=== PATIENT | female | born 1960 | race African-American/Black ===

== ENCOUNTER 2020-02-08 23:51 | Inpatient (IN) | payer BC ==
[~2020-02-08] VITALS: Ht 165.1 cm; Wt 119.8 kg
[2020-02-09] MEDS ORDERED: ASPIRIN 81MG TABLET PO ONE (00:15)
[2020-02-09] MEDS ORDERED: DILTIAZEM HCL 5MG/ML 5ML VIAL IV ONE ×2 (00:15)
[2020-02-09] MEDS ORDERED: SODIUM CHLORIDE 0.9% 1,000 ML IV ONE (00:15)
[2020-02-09 00:46] LABS: BASOPHILS % 1.1 % (0.0-2.0); EOSINOPHILS % 2.1 % (0.0-5.0); HEMATOCRIT. 39.7 % (36.0-48.0); HEMOGLOBIN. 12.9 g/dL (12.0-16.0); MEAN CORPUSCULAR HEMOGLOBIN 25.9 pg (28.0-32.0); MEAN CORPUSCULAR VOLUME 79.7 fL (81.0-99.0); MEAN PLATELET VOLUME 8.1 fl (7.4-10.4); NEUTROPHILS % 63.8 % (40.0-76.0); PLATELET 268 x1000/uL (130-400); RED BLOOD CELL COUNT 4.98 mill/uL (4.2-5.4); RED CELL DISTRIBUTION WIDTH 15.2 % (11.6-14.6)
[2020-02-09 01:07] LABS: CHLORIDE 111 mEq/L (98-107)
[2020-02-09 01:09] LABS: INR 1.1; PARTIAL THROMBOPLASTIN TIME 37.2 sec (23.4-31.0); PROTHROMBIN TIME 11.9 sec (9.6-11.0)
[2020-02-09 01:13] LABS: ETHANOL BLOOD < 10 mg/dL
[2020-02-09 02:21] LABS: CLARITY URINE CLEAR (CLEAR); COLOR URINE YELLOW (YELLOW); KETONES URINE NEGATIVE (NEGATIVE); LEUKOCYTE ESTERASE URINE TRACE (NEGATIVE); NITRITE URINE NEGATIVE (NEGATIVE); OCCULT BLOOD URINE TRACE (NEGATIVE); PROTEIN URINE NEGATIVE (NEGATIVE); SPECIFIC GRAVITY URINE 1.014 (1.005-1.030); UROBILINOGEN URINE 0.2 E.U./dL (0.2-1.0)
[2020-02-09 02:48] LABS: *AMPHETAMINES SCREEN URINE NEGATIVE (NEGATIVE); *BARBITURATES SCREEN URINE NEGATIVE (NEGATIVE); *BENZODIAZEPINES SCREEN URINE NEGATIVE (NEGATIVE); *COCAINE SCREEN URINE NEGATIVE (NEGATIVE)
[2020-02-09 02:49] LABS: CANNABINOID URINE SCREEN NEGATIVE (NEGATIVE); METHADONE URINE SCREEN NEGATIVE (NEGATIVE); OPIATES URINE SCREEN NEGATIVE (NEGATIVE); PHENCYCLIDINE URINE SCREEN NEGATIVE (NEGATIVE)
[2020-02-09 05:54] VITALS: BP 138/83
[2020-02-09 08:00] VITALS: BP 113/64
[2020-02-09] MEDS ORDERED: ACETAMINOPHEN 325MG TABLET PO PRN (08:45)
[2020-02-09] MEDS ORDERED: POTASSIUM CHLORIDE 20MEQ TABLET SR PO SCH (09:00)
[2020-02-09 12:00] VITALS: BP 135/83
[2020-02-09] MEDS: DILTIAZEM HCL 30MG TABLET PO SCH ×2 (12:34→18:32)
[2020-02-09 16:00] VITALS: BP 157/90
[2020-02-09] MEDS ORDERED: POTASSIUM CHLORIDE 20MEQ TABLET SR PO NR (16:45)
[2020-02-09] MEDS ORDERED: MAGNESIUM 1 G PREMIX 100 ML IV SCH (18:00)
[2020-02-09 20:00] VITALS: BP 112/78
[2020-02-10] VITALS: BP 132/75
[2020-02-10] MEDS: DILTIAZEM HCL 30MG TABLET PO SCH ×3 (00:48→12:42)
[2020-02-10 04:00] VITALS: BP 143/69
[2020-02-10 06:49] LABS: BASOPHILS % 0.9 % (0.0-2.0); EOSINOPHILS % 3.9 % (0.0-5.0); HEMATOCRIT. 35.1 % (36.0-48.0); HEMOGLOBIN. 11.5 g/dL (12.0-16.0); LYMPHOCYTES % 29.3 % (20.0-50.0); MEAN CORPUSCULAR HEMOGLOBIN 26.1 pg (28.0-32.0); MEAN CORPUSCULAR VOLUME 79.5 fL (81.0-99.0); MEAN PLATELET VOLUME 8.3 fl (7.4-10.4); MONOCYTES % 9.1 % (2.0-8.0); NEUTROPHILS % 56.8 % (40.0-76.0); PLATELET 256 x1000/uL (130-400); RED BLOOD CELL COUNT 4.41 mill/uL (4.2-5.4); RED CELL DISTRIBUTION WIDTH 15.2 % (11.6-14.6)
[2020-02-10 08:00] VITALS: BP 138/85
[2020-02-10 08:56] LABS: CHLORIDE 111 mEq/L (98-107)
[2020-02-10 09:04] LABS: PHOSPHORUS 3.7 mg/dL (2.5-4.9)
[2020-02-10 12:00] VITALS: BP 146/83
[2020-02-10 12:59] VITALS: BP_SYST 133; BP_SYST 146; BP_DIAS 77; BP_DIAS 83
== END 2020-02-10 15:20 | disposition home or self-care (01) | DRG 281 ==
LOC: ER 23:51 → ENRESERV 02-09 04:18 → 5WST 02-09 05:07
PROVIDERS: ADMIT Internal Medicine; ATTEND Internal Medicine
DX: I48.92 Unspecified atrial flutter (principal); I21.A1 Myocardial infarction type 2; Z68.41 Body mass index [BMI] 40.0-44.9, adult; E66.01 Morbid (severe) obesity due to excess calories; E86.0 Dehydration; I48.0 Paroxysmal atrial fibrillation; K44.9 Diaphragmatic hernia without obstruction or gangrene; I10 Essential (primary) hypertension; I25.2 Old myocardial infarction; Z80.1 Family history of malignant neoplasm of trachea, bronchus and lung; Z80.41 Family history of malignant neoplasm of ovary; Z85.3 Personal history of malignant neoplasm of breast; Z79.899 Other long term (current) drug therapy
CPT/HCPCS: 36415; 71045; 80048; 80053; 80305; 80320; 81003; 82962; 83036; 83735; 83880; 84100; 84443; 84484; 85025; 93005; 93306; 99291; J3475; J3490; J7030; G0480